=== PATIENT | male | born 1995 | race Native Hawaiian/Other Pacific Islander ===

== ENCOUNTER 2018-11-07 11:19 | Outpatient (CLI) | payer BC ==
[2018-11-07 12:03] LABS: POTASSIUM 4.1 mmol/L (3.6-5.2)
== END 2018-11-07 23:26 | disposition home or self-care (01) ==
LOC: LABW 11:19
PROVIDERS: Physician Assistant
DX: E78.00 Pure hypercholesterolemia, unspecified (principal); I10 Essential (primary) hypertension
CPT/HCPCS: 36415; 80048; 80061; 84443

== ENCOUNTER 2019-06-26 07:56 | Outpatient (CLI) | payer BC ==
[2019-06-26 08:38] LABS: PLATELET COUNT 239 K/uL (142-355)
[2019-06-26 08:43] LABS: POTASSIUM 3.8 mmol/L (3.6-5.2)
== END 2019-06-26 22:49 | disposition home or self-care (01) ==
LOC: LABW 07:56
PROVIDERS: Internal Medicine
DX: I10 Essential (primary) hypertension (principal)
CPT/HCPCS: 36415; 80053; 80061; 85027

== ENCOUNTER 2020-03-13 08:05 | Outpatient (CLI) | payer BC ==
[2020-03-13 10:02] LABS: POTASSIUM 4.2 mmol/L (3.6-5.2)
== END 2020-03-13 19:02 | disposition home or self-care (01) ==
LOC: LABW 08:05
PROVIDERS: ATTEND Internal Medicine
DX: I10 Essential (primary) hypertension (principal)
CPT/HCPCS: 36415; 80053; 80061

== ENCOUNTER 2020-11-14 08:57 | Outpatient (CLI) | payer BC, OTHER | END 2020-11-14 20:34 | disposition home or self-care (01) | LOC: LAB 08:57 | PROVIDERS: ATTEND Internal Medicine | DX: Z20.822 Contact with and (suspected) exposure to COVID-19 (principal) | CPT/HCPCS: 87635; G2023; U0003 ==

== ENCOUNTER 2021-08-11 10:48 | Outpatient (CLI) | payer BC ==
[2021-08-11 11:23] LABS: PLATELET COUNT 217 K/uL (142-355)
== END 2021-08-11 19:42 | disposition home or self-care (01) ==
LOC: LABW 10:48
PROVIDERS: ATTEND Internal Medicine
DX: I10 Essential (primary) hypertension (principal)
CPT/HCPCS: 36415; 80053; 80061; 81000; 84443; 85027